=== PATIENT | female | born 1985 | race African-American/Black ===

== ENCOUNTER → 2020-03-26 | Outpatient (CLI) | payer MEDICARE, MEDICAID | END | disposition home or self-care (01) | LOC: STAR 09:20 | PROVIDERS: ATTEND Anesthesiology | DX: Z01.812 Encounter for preprocedural laboratory examination (principal); Z20.828 Contact with and (suspected) exposure to other viral communicable diseases | CPT/HCPCS: 36415; 87635 ==

== ENCOUNTER 2020-03-31 14:06 | Day surgery (SDC) | payer MEDICARE, MEDICAID ==
[~2020-03-31] VITALS: Ht 152.4 cm; Wt 85.6 kg
[2020-03-31] MEDS ORDERED: SODIUM CHLORIDE 0.9% 1,000 ML IV SCH (14:27)
[2020-03-31] MEDS ORDERED: CHLORHEXIDINE 15 ML UDC MM STA (14:27)
[2020-03-31] MEDS ORDERED: VITAMIN D (14:35)
[2020-03-31] MEDS ORDERED: CARV25TA12 PO (14:35)
[2020-03-31] MEDS ORDERED: LISI-167 PO (14:35)
[2020-03-31] MEDS ORDERED: ATOR40TA78 PO (14:35)
[2020-03-31] MEDS ORDERED: NIFE20CA PO (14:35)
[2020-03-31] MEDS ORDERED: SUCR500T PO (14:35)
[2020-03-31] MEDS ORDERED: HYDR-3342 PO (14:35)
[2020-03-31 14:38] VITALS: BP 111/69
[2020-03-31 15:30] LABS: BASOPHILS # (AUTO) 0.02 x10^3/uL (0-0.1); BASOPHILS % (AUTO) 0 % (0-1); EOSINOPHILS # (AUTO) 0.41 x10^3/uL (0-0.4); EOSINOPHILS % (AUTO) 5 % (1-7); LYMPHOCYTES # (AUTO) 1.31 x10^3/uL (1-3.4); LYMPHOCYTES % (AUTO) 14 % (22-44); MD NO; MEAN CORPUSCULAR HEMOGLOBIN 31.9 pg (27.0-34.8); MEAN CORPUSCULAR HGB CONC 32.3 g/dL (32.4-35.8); MEAN PLATELET VOLUME 7.7 fL (7.4-10.4); MONOCYTES # (AUTO) 0.71 x10^3/uL (0.2-0.8); MONOCYTES % (AUTO) 8 % (2-9); NEUTROPHILS # (AUTO) 6.81 x10^3/uL (1.8-6.8); NEUTROPHILS % (AUTO) 74 % (42-75); PLATELET COUNT 313 x10^3/uL (130-400); RED BLOOD COUNT 3.49 x10^6/uL (3.82-5.3); RED CELL DISTRIBUTION WIDTH 15.4 % (9.6-15.2)
[2020-03-31 15:31] LABS: HCG UR SG 1.011 (1.003-1.030)
[2020-03-31 15:36] LABS: ALBUMIN 3.8 g/dL (3.4-5.0); ANION GAP 6 mmol/L (5-15); CALCIUM 8.6 mg/dL (8.5-10.1); CHLORIDE 100 mmol/L (98-107)
[2020-03-31 15:50] LABS: ALANINE AMINOTRANSFERASE 18 U/L (12-78); ALKALINE PHOSPHATASE 62 U/L (45-117); BILIRUBIN,TOTAL 0.4 mg/dL (0.2-1.0); CREATININE 7.54 mg/dL (0.55-1.02); TOTAL PROTEIN 8.6 g/dL (6.4-8.2)
[2020-03-31] MEDS ORDERED: ONDANSETRON 2MG/ML, 2ML IVPush PRN ×2 (16:00→21:00)
[2020-03-31] MEDS ORDERED: OXYcodone 5 MG/5 ML ORAL.SOL UDC PO PRN (16:00)
[2020-03-31] MEDS ORDERED: PROMETHAZINE 25 MG/ML, 1ML IVPush PRN (16:00)
[2020-03-31] MEDS ORDERED: MEPERIDINE/PF 25MG/0.5ML IVPush PRN (16:00)
[2020-03-31] MEDS ORDERED: HYDROmorphone 1 MG/ML, 1ML INJ IVPush PRN (16:00)
[2020-03-31] MEDS ORDERED: ACETAMINOPHEN 325 MG TABLET PO PRN (16:00)
[2020-03-31] MEDS ORDERED: hydrALAzine 20 MG/ML, 1ML IV PRN (16:00)
[2020-03-31] MEDS ORDERED: FENTANYL PF 100 MCG/2ML IV PRN (16:00)
[2020-03-31] MEDS ORDERED: EPHEDRINE 50 MG/ML, 1ML IVPush PRN (16:00)
[2020-03-31] MEDS ORDERED: MIDAZOLAM 1 MG/ML, 2ML ONE (16:45)
[2020-03-31] MEDS ORDERED: FENTANYL PF 250 MCG/5ML ONE (16:45)
[2020-03-31] MEDS ORDERED: EPINEPHRINE 1 MG/ML, 1ML ONE ×2 (16:48→17:40)
[2020-03-31] MEDS ORDERED: LIDOCAINE-MPF 2% ,5ML ONE (16:48)
[2020-03-31] MEDS ORDERED: PAPAVERINE 30 MG/ML, 2ML ONE (17:40)
[2020-03-31] MEDS ORDERED: HEPARIN 1,000 UNITS/ML, 10ML ONE (17:40)
[2020-03-31] MEDS ORDERED: BUPIVACAINE/PF 0.5% ONE (17:40)
[2020-03-31] MEDS ORDERED: PROTAMINE SULFATE 10 MG/ML, 5ML ONE (17:40)
[2020-03-31] MEDS ORDERED: BACITRACIN 50,000 UNIT ONE (17:42)
[2020-03-31] MEDS ORDERED: LIDOCAINE/PF 1%, 30ML ONE (17:42)
[2020-03-31] MEDS ORDERED: THROMBIN 20,000 UNIT VIAL TP ONE (17:43)
[2020-03-31] MEDS ORDERED: CEFAZOLIN 1,000 MG ONE (17:45)
[2020-03-31] MEDS ORDERED: DEXAMETHASONE 4 MG/ML, 1ML ONE (17:45)
[2020-03-31] MEDS ORDERED: ONDANSETRON 2MG/ML, 2ML ONE (17:45)
[2020-03-31] MEDS ORDERED: PROPOFOL 10 MG/ML, 20ML ONE (17:45)
[2020-03-31] MEDS ORDERED: FENTANYL PF 100 MCG/2ML ONE (19:26)
[2020-03-31] MEDS ORDERED: OXYcodone 5 MG/5 ML ORAL.SOL UDC ONE (19:27)
[2020-03-31] MEDS ORDERED: ACETAMINOPHEN 650 MG/20.3 ML UDC ONE (19:33)
[2020-03-31] MEDS: LABETALOL 5MG/ML, 20ML IV PRN ×2 (19:43→20:00)
[2020-03-31] MEDS ORDERED: SODIUM CHLORIDE FLUSH 10ML SYR IVF SCH (21:00)
[2020-03-31] MEDS ORDERED: ATORVASTATIN 40 MG TABLET PO SCH (21:00)
[2020-03-31] MEDS ORDERED: HYDROcodone/APAP 5/325 TABLET PO PRN (21:00)
[2020-03-31] MEDS ORDERED: MORPHINE SULFATE 4 MG/ML, 1ML IVPush PRN (21:00)
[2020-03-31] MEDS ORDERED: HYDR-3240 PO (21:14)
[2020-04-01] MEDS ORDERED: CARVEDILOL 25 MG TABLET PO SCH (06:00)
[2020-04-01] MEDS ORDERED: SUCROFERRIC OXYHYDROXIDE 500 MG HOMEMEDPO SCH (08:00)
[2020-04-01] MEDS ORDERED: LISINOPRIL 10 MG TABLET PO SCH (09:00)
[2020-04-01] MEDS ORDERED: niFEDipine ER 30 MG TABLET.ER PO SCH (09:00)
== END 2020-03-31 23:07 | disposition home or self-care (01) ==
LOC: OR 14:06 → 4NE 20:30 → OR 23:07
PROVIDERS: ATTEND Surgery
DX: T82.868A Thrombosis due to vascular prosthetic devices, implants and grafts, initial encounter (principal); Y83.8 Other surgical procedures as the cause of abnormal reaction of the patient, or of later complication, without mention of misadventure at the time of the procedure; I12.0 Hypertensive chronic kidney disease with stage 5 chronic kidney disease or end stage renal disease; N18.6 End stage renal disease; E78.5 Hyperlipidemia, unspecified; F12.90 Cannabis use, unspecified, uncomplicated; Z99.2 Dependence on renal dialysis; Z88.8 Allergy status to other drugs, medicaments and biological substances; Z79.899 Other long term (current) drug therapy; Z98.890 Other specified postprocedural states
CPT/HCPCS: 35206; 36415; 37607; 80053; 81025; 85025; J0171; J0690; J1100; J1644; J2250; J2405; J2704; J2720; J3010; J7030; G0378; J2440

== ENCOUNTER 2021-01-20 09:56 | Inpatient (IN) | payer MEDICARE, MEDICAID ==
[~2021-01-20] VITALS: Ht 152.4 cm; Wt 77.4 kg
[~2021-01-20 09:56] MED LIST: ATOR40TA78 PO; CARV25TA12 PO; HYDR-2214 PO; HYDR-3342 PO; LISI-167 PO; NIFE20CA PO; SUCR500T PO; VITAMIN D
[2021-01-20] MEDS ORDERED: ACETAMINOPHEN 500 MG TABLET ONE ×2 (10:54→14:02)
[2021-01-20] MEDS ORDERED: ONDANSETRON 2MG/ML, 2ML ONE (10:54)
[2021-01-20] MEDS ORDERED: LORazepam 2 MG/ML, 1ML ONE ×3 (10:55→17:03)
[2021-01-20] MEDS ORDERED: CEFTRIAXONE 1,000 MG in DEXTROSE 5% 50 ML IVPB ONE (11:00)
[2021-01-20] MEDS ORDERED: LORazepam 2 MG/ML, 1ML IVPush ONE ×3 (11:00→17:30)
[2021-01-20] MEDS ORDERED: ACETAMINOPHEN 500 MG TABLET PO ONE (11:00)
--- NOTE | 2021-01-20 11:01 | NUR ---
[employer] Sales Agent concerned for sirs (febrile/tachycardic). provider to beside. piv placed from which blood culture x1 as well as basic labs drawn Medicated with nausea/anxiety/ per emar placed on monitoring manager ecg obtained
[2021-01-20 11:13] LABS: BASOPHILS % (AUTO) 0 % (0-1); EOSINOPHILS % (AUTO) 0 % (1-7); LYMPHOCYTES % (AUTO) 5 % (22-44); MEAN CORPUSCULAR HEMOGLOBIN 32.7 pg (27.0-34.8); MEAN CORPUSCULAR HGB CONC 33.9 g/dL (32.4-35.8); MEAN PLATELET VOLUME 8.4 fL (7.4-10.4); MONOCYTES % (AUTO) 6 % (2-9); NEUTROPHILS % (AUTO) 88 % (42-75); PLATELET COUNT 236 x10^3/uL (130-400); RED BLOOD COUNT 3.34 x10^6/uL (3.82-5.3); RED CELL DISTRIBUTION WIDTH 14.4 % (9.6-15.2)
[2021-01-20 11:20] LABS: ALBUMIN 3.7 g/dL (3.4-5.0); ANION GAP 9 mmol/L (5-15); CHLORIDE 91 mmol/L (98-107)
--- NOTE | 2021-01-20 11:24 | NUR ---
LAB AT BEDSIDE FOR LACTATE/2ND BLOOD CULTURE
--- NOTE | 2021-01-20 11:35 | NUR ---
POC REVIEWED WITH ERP: APAP FOR FEVER, BLOOD CULTURES X2, ABX AND SPARINGLY USE FLUIDS (NOT 30ML/KG NOT HYPOTENSIVE AND A DIALYSIS PATIENT)
[2021-01-20] MEDS ORDERED: SODIUM CHLORIDE 0.9% 1,000ML IVBOLUS ONE (12:30)
--- NOTE | 2021-01-20 12:31 | NUR ---
ERP ASKED FOR PAIN MEDS, SECONDARY ABX (GRAM +) PATIENT TO MRI AT 1228
[2021-01-20] MEDS ORDERED: HYDROmorphone 1 MG/ML, 1ML INJ IV ONE (13:00)
[2021-01-20] MEDS ORDERED: HYDROmorphone 1 MG/ML, 1ML INJ ONE ×2 (13:08→15:44)
--- NOTE | 2021-01-20 15:11 | NUR ---
report to jeyson villanueva
--- NOTE | 2021-01-20 16:33 | NUR ---
OFF THE FLOOR TO MRI
--- NOTE | 2021-01-20 17:13 | NUR ---
PT MEDICATED PER MAR FOR ANXIETY IN MRI.
[2021-01-20] MEDS ORDERED: hydrALAzine 20 MG/ML, 1ML IVPush PRN (18:30)
[2021-01-20] MEDS ORDERED: AMPICILLIN/SULBACTAM 3 GM in SODIUM CHLORIDE 0.9% 100 ML IV SCH ×2 (18:30→21:00)
[2021-01-20] MEDS ORDERED: ENALAPRILAT 1.25 MG/ML, 2ML IVPush PRN (18:30)
[2021-01-20] MEDS ORDERED: LABETALOL 5MG/ML, 20ML IVPush PRN (18:30)
[2021-01-20] MEDS ORDERED: VANCOMYCIN PER PHARMACY MC PRN (18:30)
[2021-01-20] MEDS ORDERED: DIPHENHYDRAMINE 50 MG/ML, 1ML IVPush ONE (18:30)
[2021-01-20] MEDS ORDERED: PHARMACY MAY ADJ FOR RENAL FX MC PRN (18:30)
[2021-01-20] MEDS ORDERED: BISACODYL 10 MG SUPP PR PRN (18:30)
[2021-01-20] MEDS ORDERED: POLYETHYLENE GLYCOL 17 GM PACKET PO PRN (18:30)
[2021-01-20] MEDS ORDERED: ONDANSETRON ODT 4 MG PO PRN (18:30)
[2021-01-20] MEDS ORDERED: DOCUSATE 100 MG CAPSULE PO PRN (18:30)
[2021-01-20] MEDS ORDERED: DIPHENHYDRAMINE 50 MG/ML, 1ML ONE (18:36)
--- NOTE | 2021-01-20 18:44 | NUR ---
PT MEDICATED WITH PREDNISONE. DR VALLECILLO VERBALLY ADVISED TO HOLD OFF ON BENADRYL UNTIL RIGHT BEFORE PT GOES TO CT.
--- NOTE | 2021-01-20 19:56 | NUR ---
STILL WAITING FOR CT SCAN TO BE DONE. PT TO RECEIVED BENADRYL PRIOR TO CT SCAN, AND THEN ADMISSION.
--- NOTE | 2021-01-20 20:35 | NUR ---
REPORT CALLED TO FLOOR RN, WITHOUT INCIDENT. STAFF ELECTRONIC [employer] OFFICER AT BEDSIDE TO TAKE PT TO CT. PT AWAKE AND ALERT. BENADRYL GIVEN FOR POSSIBLE ALLERGIC REACTION PRIOR TO CT SCAN.
[2021-01-20] MEDS: AMPICILLIN/SULBACTAM 3 GM in SODIUM CHLORIDE 0.9% 100 ML IV SCH (20:48)
[2021-01-20] MEDS ORDERED: OMNIPAQUE 350 MG/ML, 100ML BOTTLE ONE (20:55)
[2021-01-20] MEDS ORDERED: PHARMACOKINETIC CONSULTATION MC ONE (21:00)
[2021-01-20] MEDS: SUCROFERRIC OXYHYDROXIDE 500 MG PO SCH (21:00)
[2021-01-20] MEDS ORDERED: VANCOMYCIN 1,600 MG in SODIUM CHLORIDE 0.9% 250 ML IV ONE (21:00)
[2021-01-20] MEDS ORDERED: PHARMACOKINETIC MONITORING MC PRN (21:00)
--- NOTE | 2021-01-20 21:08 | NUR ---
PT TAKEN TO FLOOR VIA STRETCHER, NO ACUTE DISTRESS. IV INTACT. MEDS INCLUDED IN TRANSPORT TO FLOOR WITH PT.
[2021-01-20] MEDS: CARVEDILOL 25 MG TABLET PO SCH (21:40)
[2021-01-20] MEDS: ATORVASTATIN 40 MG TABLET PO SCH (21:40)
[2021-01-20] MEDS: HYDROcodone/APAP 5/325 TABLET PO PRN (22:43)
[2021-01-20 22:53] VITALS: BP_SYST 135; BP_SYST 138; BP_DIAS 68
[2021-01-21 02:12] VITALS: BP 106/70
[2021-01-21 06:01] LABS: BASOPHILS % (AUTO) 0 % (0-1); EOSINOPHILS % (AUTO) 0 % (1-7); LYMPHOCYTES % (AUTO) 7 % (22-44); MEAN CORPUSCULAR HEMOGLOBIN 32.9 pg (27.0-34.8); MEAN CORPUSCULAR HGB CONC 33.2 g/dL (32.4-35.8); MEAN PLATELET VOLUME 8.8 fL (7.4-10.4); MONOCYTES % (AUTO) 5 % (2-9); NEUTROPHILS % (AUTO) 87 % (42-75); PLATELET COUNT 193 x10^3/uL (130-400); RED BLOOD COUNT 3.25 x10^6/uL (3.82-5.3); RED CELL DISTRIBUTION WIDTH 14.7 % (9.6-15.2)
[2021-01-21 07:02] VITALS: BP 115/74
[2021-01-21] MEDS: niFEDipine ER 90 MG TAB.ER.24 PO SCH (08:12)
[2021-01-21] MEDS: CARVEDILOL 25 MG TABLET PO SCH ×2 (08:12→20:20)
[2021-01-21] MEDS: HYDROcodone/APAP 5/325 TABLET PO PRN ×3 (08:12→23:19)
[2021-01-21] MEDS: LISINOPRIL 10 MG TABLET PO SCH ×2 (08:13→13:44)
[2021-01-21] MEDS: SUCROFERRIC OXYHYDROXIDE 500 MG PO SCH ×3 (08:13→20:24)
[2021-01-21 10:10] LABS: ANION GAP 9 mmol/L (5-15); CALCIUM 8.7 mg/dL (8.5-10.1); CHLORIDE 90 mmol/L (98-107)
[2021-01-21 12:27] VITALS: BP 83/52
[2021-01-21 15:15] VITALS: BP 103/54
[2021-01-21 19:28] VITALS: BP 108/66
[2021-01-21] MEDS: AMPICILLIN/SULBACTAM 3 GM in SODIUM CHLORIDE 0.9% 100 ML IV SCH (20:24)
[2021-01-21] MEDS: ATORVASTATIN 40 MG TABLET PO SCH (20:25)
[2021-01-22] VITALS (7 sets, daily range): BP systolic 95–123; BP diastolic 55–80
[2021-01-22] MEDS: HYDROcodone/APAP 5/325 TABLET PO PRN ×2 (03:29→09:55)
[2021-01-22 06:02] LABS: BASOPHILS % (AUTO) 0 % (0-1); EOSINOPHILS % (AUTO) 2 % (1-7); LYMPHOCYTES % (AUTO) 11 % (22-44); MEAN CORPUSCULAR HEMOGLOBIN 33.2 pg (27.0-34.8); MEAN CORPUSCULAR HGB CONC 33.8 g/dL (32.4-35.8); MEAN PLATELET VOLUME 8.1 fL (7.4-10.4); MONOCYTES % (AUTO) 12 % (2-9); NEUTROPHILS % (AUTO) 75 % (42-75); PLATELET COUNT 260 x10^3/uL (130-400); RED BLOOD COUNT 3.26 x10^6/uL (3.82-5.3); RED CELL DISTRIBUTION WIDTH 13.8 % (9.6-15.2)
[2021-01-22 06:26] LABS: CHLORIDE 94 mmol/L (98-107)
[2021-01-22 06:34] LABS: ALANINE AMINOTRANSFERASE 27 U/L (12-78); ALBUMIN 3.6 g/dL (3.4-5.0); ALKALINE PHOSPHATASE 56 U/L (45-117); ANION GAP 6 mmol/L (5-15); BILIRUBIN,TOTAL 0.4 mg/dL (0.2-1.0); CREATININE 9.67 mg/dL (0.55-1.02); VANCOMYCIN,RANDOM 30.4 mcg/mL
[2021-01-22] MEDS: SUCROFERRIC OXYHYDROXIDE 500 MG PO SCH ×2 (09:00→11:32)
[2021-01-22] MEDS: niFEDipine ER 90 MG TAB.ER.24 PO SCH (09:56)
[2021-01-22] MEDS: CARVEDILOL 25 MG TABLET PO SCH ×2 (09:58→19:56)
[2021-01-22] MEDS: LISINOPRIL 10 MG TABLET PO SCH (11:58)
[2021-01-22] MEDS: OXYcodone IR 5MG TABLET PO PRN ×2 (11:59→17:51)
[2021-01-22] MEDS: SUCROFERRIC OXYHYDROXIDE 1000 MG PO SCH (18:00)
[2021-01-22] MEDS: ACETAMINOPHEN 325 MG TABLET PO PRN (18:08)
[2021-01-22] MEDS: AMPICILLIN/SULBACTAM 3 GM in SODIUM CHLORIDE 0.9% 100 ML IV SCH (19:50)
[2021-01-22] MEDS: ONDANSETRON 2MG/ML, 2ML IVPush PRN (19:50)
[2021-01-22] MEDS: DOCUSATE 100 MG CAPSULE PO SCH (19:56)
[2021-01-22] MEDS: ATORVASTATIN 40 MG TABLET PO SCH (20:57)
[2021-01-22] MEDS ORDERED: SUCROFERRIC OXYHYDROXIDE 1000 MG PO SCH ×2 (21:00)
[2021-01-23] MEDS: OXYcodone IR 5MG TABLET PO PRN ×5 (00:01→20:37)
[2021-01-23 05:37] LABS: BASOPHILS % (AUTO) 0 % (0-1); EOSINOPHILS % (AUTO) 2 % (1-7); LYMPHOCYTES % (AUTO) 15 % (22-44); MEAN CORPUSCULAR HEMOGLOBIN 32.9 pg (27.0-34.8); MEAN CORPUSCULAR HGB CONC 33.5 g/dL (32.4-35.8); MONOCYTES % (AUTO) 12 % (2-9); NEUTROPHILS % (AUTO) 70 % (42-75); PLATELET COUNT 311 x10^3/uL (130-400); RED BLOOD COUNT 3.28 x10^6/uL (3.82-5.3); RED CELL DISTRIBUTION WIDTH 14.4 % (9.6-15.2)
[2021-01-23 05:45] LABS: CHLORIDE 93 mmol/L (98-107)
[2021-01-23 05:54] LABS: ANION GAP 11 mmol/L (5-15); CALCIUM 9.2 mg/dL (8.5-10.1); VANCOMYCIN,RANDOM 26.6 mcg/mL
[2021-01-23 06:52] VITALS: BP 111/73
[2021-01-23] MEDS: CARVEDILOL 25 MG TABLET PO SCH ×2 (07:17→20:38)
[2021-01-23] MEDS: LISINOPRIL 10 MG TABLET PO SCH (07:18)
[2021-01-23] MEDS: niFEDipine ER 90 MG TAB.ER.24 PO SCH (07:18)
[2021-01-23] MEDS: SUCROFERRIC OXYHYDROXIDE 1000 MG PO SCH ×3 (08:00→17:00)
[2021-01-23] MEDS: ACETAMINOPHEN 325 MG TABLET PO PRN ×3 (08:18→20:36)
[2021-01-23] MEDS: DOCUSATE 100 MG CAPSULE PO SCH ×2 (08:20→20:38)
[2021-01-23] MEDS: HEPARIN 5,000 UNITS/ML, 1ML SQ SCH ×2 (12:58→20:38)
[2021-01-23] MEDS: CEFAZOLIN PMX 2GM/50ML 50 ML IVPB SCH (12:58)
[2021-01-23] MEDS ORDERED: CEFAZOLIN PMX 2GM/100ML 100 ML IVPB SCH (13:00)
[2021-01-23 13:32] VITALS: BP 117/77
[2021-01-23 20:09] VITALS: BP 128/86
[2021-01-23] MEDS: ATORVASTATIN 40 MG TABLET PO SCH (20:38)
[2021-01-23] MEDS: ONDANSETRON 2MG/ML, 2ML IVPush PRN (20:57)
[2021-01-24 00:42] VITALS: BP 108/70
[2021-01-24] MEDS: OXYcodone IR 5MG TABLET PO PRN ×4 (03:46→20:20)
[2021-01-24] MEDS: HEPARIN 5,000 UNITS/ML, 1ML SQ SCH ×2 (03:51→15:52)
[2021-01-24] MEDS: ACETAMINOPHEN 325 MG TABLET PO PRN ×4 (03:52→20:15)
[2021-01-24 05:35] LABS: BASOPHILS % (AUTO) 0 % (0-1); EOSINOPHILS % (AUTO) 2 % (1-7); LYMPHOCYTES % (AUTO) 12 % (22-44); MEAN CORPUSCULAR HEMOGLOBIN 32.8 pg (27.0-34.8); MEAN CORPUSCULAR HGB CONC 33.8 g/dL (32.4-35.8); MEAN PLATELET VOLUME 8.1 fL (7.4-10.4); MONOCYTES % (AUTO) 11 % (2-9); NEUTROPHILS % (AUTO) 75 % (42-75); PLATELET COUNT 307 x10^3/uL (130-400); RED BLOOD COUNT 3.13 x10^6/uL (3.82-5.3); RED CELL DISTRIBUTION WIDTH 14.3 % (9.6-15.2)
[2021-01-24 05:44] LABS: ALBUMIN 3.4 g/dL (3.4-5.0); ANION GAP 12 mmol/L (5-15); CALCIUM 9.4 mg/dL (8.5-10.1); CHLORIDE 91 mmol/L (98-107)
[2021-01-24 06:28] VITALS: BP 122/75
[2021-01-24] MEDS: SUCROFERRIC OXYHYDROXIDE 1000 MG PO SCH ×3 (07:54→16:37)
[2021-01-24] MEDS: LISINOPRIL 10 MG TABLET PO SCH (07:54)
[2021-01-24] MEDS: DOCUSATE 100 MG CAPSULE PO SCH ×2 (07:54→20:20)
[2021-01-24] MEDS: niFEDipine ER 90 MG TAB.ER.24 PO SCH (07:54)
[2021-01-24] MEDS: CARVEDILOL 25 MG TABLET PO SCH ×2 (07:54→19:56)
[2021-01-24 14:00] VITALS: BP 111/62
[2021-01-24] MEDS: CEFAZOLIN PMX 2GM/50ML 50 ML IVPB SCH (16:36)
[2021-01-24 19:01] VITALS: BP 105/72
[2021-01-24] MEDS: ATORVASTATIN 40 MG TABLET PO SCH (20:14)
[2021-01-25 00:14] VITALS: BP 110/74
[2021-01-25] MEDS: ACETAMINOPHEN 325 MG TABLET PO PRN (00:31)
[2021-01-25] MEDS: HEPARIN 5,000 UNITS/ML, 1ML SQ SCH ×3 (00:31→18:25)
[2021-01-25] MEDS: OXYcodone IR 5MG TABLET PO PRN ×4 (00:32→20:10)
[2021-01-25 04:58] LABS: BASOPHILS % (AUTO) 0 % (0-1); EOSINOPHILS % (AUTO) 2 % (1-7); LYMPHOCYTES % (AUTO) 15 % (22-44); MEAN CORPUSCULAR HEMOGLOBIN 33.1 pg (27.0-34.8); MEAN CORPUSCULAR HGB CONC 34.1 g/dL (32.4-35.8); MEAN PLATELET VOLUME 8.2 fL (7.4-10.4); MONOCYTES % (AUTO) 12 % (2-9); NEUTROPHILS % (AUTO) 71 % (42-75); PLATELET COUNT 372 x10^3/uL (130-400); RED BLOOD COUNT 3.43 x10^6/uL (3.82-5.3); RED CELL DISTRIBUTION WIDTH 14.5 % (9.6-15.2)
[2021-01-25 06:34] VITALS: BP 117/79
[2021-01-25] MEDS: SUCROFERRIC OXYHYDROXIDE 1000 MG PO SCH ×3 (08:00→17:00)
[2021-01-25] MEDS: niFEDipine ER 90 MG TAB.ER.24 PO SCH (08:35)
[2021-01-25] MEDS: CARVEDILOL 25 MG TABLET PO SCH ×2 (08:35→20:10)
[2021-01-25] MEDS: LISINOPRIL 10 MG TABLET PO SCH (08:35)
[2021-01-25] MEDS: DOCUSATE 100 MG CAPSULE PO SCH ×2 (08:35→20:04)
[2021-01-25 12:44] VITALS: BP 117/76
[2021-01-25] MEDS: CEFAZOLIN PMX 2GM/50ML 50 ML IVPB SCH (12:44)
[2021-01-25 18:29] VITALS: BP 124/87
[2021-01-25 20:00] VITALS: BP 113/79
[2021-01-25] MEDS: ATORVASTATIN 40 MG TABLET PO SCH (20:10)
[2021-01-26 00:46] VITALS: BP 122/85
[2021-01-26] MEDS: HEPARIN 5,000 UNITS/ML, 1ML SQ SCH ×2 (01:48→08:32)
[2021-01-26] MEDS: OXYcodone IR 5MG TABLET PO PRN ×4 (01:49→22:33)
[2021-01-26 05:07] LABS: BASOPHILS % (AUTO) 0 % (0-1); EOSINOPHILS % (AUTO) 2 % (1-7); LYMPHOCYTES % (AUTO) 12 % (22-44); MEAN CORPUSCULAR HEMOGLOBIN 33.2 pg (27.0-34.8); MEAN CORPUSCULAR HGB CONC 34.2 g/dL (32.4-35.8); MEAN PLATELET VOLUME 8.2 fL (7.4-10.4); MONOCYTES % (AUTO) 9 % (2-9); NEUTROPHILS % (AUTO) 78 % (42-75); PLATELET COUNT 408 x10^3/uL (130-400); RED BLOOD COUNT 3.19 x10^6/uL (3.82-5.3)
[2021-01-26 05:16] LABS: ALBUMIN 3.5 g/dL (3.4-5.0); ANION GAP 14 mmol/L (5-15); CALCIUM 10.2 mg/dL (8.5-10.1); CHLORIDE 89 mmol/L (98-107)
[2021-01-26 05:21] LABS: ALANINE AMINOTRANSFERASE 7 U/L (12-78); ALKALINE PHOSPHATASE 61 U/L (45-117); BILIRUBIN,TOTAL 0.5 mg/dL (0.2-1.0); TOTAL PROTEIN 9.7 g/dL (6.4-8.2)
[2021-01-26] MEDS: SUCROFERRIC OXYHYDROXIDE 1000 MG PO SCH ×3 (08:00→17:00)
[2021-01-26 08:48] VITALS: BP 129/85
[2021-01-26] MEDS: DOCUSATE 100 MG CAPSULE PO SCH ×2 (09:00→21:17)
[2021-01-26] MEDS: LISINOPRIL 10 MG TABLET PO SCH (09:00)
[2021-01-26] MEDS: CARVEDILOL 25 MG TABLET PO SCH ×2 (09:00→21:00)
[2021-01-26] MEDS: niFEDipine ER 90 MG TAB.ER.24 PO SCH (09:00)
[2021-01-26] MEDS ORDERED: APIXABAN 5 MG TABLET PO SCH (13:30)
[2021-01-26 14:07] VITALS: BP 100/70
[2021-01-26 18:41] VITALS: BP 110/76
[2021-01-26 21:13] VITALS: BP 103/73
[2021-01-26] MEDS: ATORVASTATIN 40 MG TABLET PO SCH (21:17)
[2021-01-26] MEDS: CEFAZOLIN PMX 2GM/50ML 50 ML IVPB SCH (22:33)
[2021-01-26] MEDS: ONDANSETRON 2MG/ML, 2ML IVPush PRN (22:44)
[2021-01-27] VITALS (17 sets, daily range): BP systolic 69–121; BP diastolic 41–78
[2021-01-27 04:53] LABS: ALBUMIN 3.5 g/dL (3.4-5.0); ANION GAP 10 mmol/L (5-15); CALCIUM 10.3 mg/dL (8.5-10.1); CHLORIDE 90 mmol/L (98-107)
[2021-01-27] MEDS: SUCROFERRIC OXYHYDROXIDE 1000 MG PO SCH ×3 (08:00→18:30)
[2021-01-27] MEDS: DOCUSATE 100 MG CAPSULE PO SCH ×2 (08:59→20:00)
[2021-01-27] MEDS: LISINOPRIL 10 MG TABLET PO SCH (08:59)
[2021-01-27] MEDS: CARVEDILOL 25 MG TABLET PO SCH (08:59)
[2021-01-27] MEDS: niFEDipine ER 90 MG TAB.ER.24 PO SCH (08:59)
[2021-01-27] MEDS: OXYcodone IR 5MG TABLET PO PRN ×2 (09:07→20:00)
[2021-01-27] MEDS ORDERED: SODIUM CHLORIDE 0.9%, 500ML IVBOLUS ONE ×2 (11:30→14:00)
[2021-01-27] MEDS ORDERED: MIDODRINE 5 MG TABLET PO ONE (12:30)
[2021-01-27] MEDS ORDERED: MIDODRINE 5 MG TABLET ONE (12:41)
[2021-01-27] MEDS: ONDANSETRON 2MG/ML, 2ML IVPush PRN ×2 (13:33→20:08)
--- NOTE | 2021-01-27 14:11 | NUR ---
AL SARKAR - Fall Risk Medications present and NOT receiving anticoagulants.
[2021-01-27] MEDS ORDERED: MEROPENEM 1 GM in SODIUM CHLORIDE 0.9% 100 ML IV SCH (17:30)
[2021-01-27] MEDS ORDERED: MEROPENEM 500 MG in SODIUM CHLORIDE 0.9% 100 ML IV SCH (17:30)
[2021-01-27] MEDS ORDERED: PHARMACY MAY ADJ FOR RENAL FX MC PRN (17:30)
[2021-01-27] MEDS ORDERED: NOREPINEPHRINE 8 MG in SODIUM CHLORIDE 0.9% 242 ML IV PRN (18:00)
[2021-01-27] MEDS: MEROPENEM 1 GM in SODIUM CHLORIDE 0.9% 100 ML IV SCH (18:30)
[2021-01-27] MEDS: ATORVASTATIN 40 MG TABLET PO SCH (19:59)
[2021-01-27] MEDS ORDERED: MAALOX/HYOSCYAMINE/LIDOCAINE 45 ML BTL PO ONE (20:00)
[2021-01-27 20:26] LABS: TROPONIN I < 0.015 ng/mL (0.000-0.045)
[2021-01-28 02:50] LABS: TROPONIN I < 0.015 ng/mL (0.000-0.045)
[2021-01-28] MEDS ORDERED: predniSONE 50MG TABLET PO ONE ×3 (03:00→11:00)
[2021-01-28 04:44] LABS: BASOPHILS % (AUTO) 0 % (0-1); EOSINOPHILS % (AUTO) 2 % (1-7); LYMPHOCYTES % (AUTO) 11 % (22-44); MEAN CORPUSCULAR HEMOGLOBIN 32.8 pg (27.0-34.8); MEAN PLATELET VOLUME 7.6 fL (7.4-10.4); MONOCYTES % (AUTO) 11 % (2-9); NEUTROPHILS % (AUTO) 76 % (42-75); PLATELET COUNT 415 x10^3/uL (130-400); RED BLOOD COUNT 2.74 x10^6/uL (3.82-5.3); RED CELL DISTRIBUTION WIDTH 13.9 % (9.6-15.2)
[2021-01-28 04:55] LABS: ALBUMIN 3.3 g/dL (3.4-5.0); ANION GAP 13 mmol/L (5-15); CALCIUM 9.8 mg/dL (8.5-10.1); CHLORIDE 93 mmol/L (98-107)
[2021-01-28 04:59] LABS: ALKALINE PHOSPHATASE 47 U/L (45-117); BILIRUBIN,TOTAL 0.4 mg/dL (0.2-1.0); TOTAL PROTEIN 8.5 g/dL (6.4-8.2)
[2021-01-28 05:12] LABS: ALANINE AMINOTRANSFERASE < 6 U/L (12-78)
[2021-01-28] MEDS: SUCROFERRIC OXYHYDROXIDE 1000 MG PO SCH ×3 (08:00→16:33)
[2021-01-28] MEDS: DOCUSATE 100 MG CAPSULE PO SCH ×2 (09:00→21:00)
[2021-01-28] MEDS ORDERED: LORazepam 2 MG/ML, 1ML IVPush ONE (10:00)
[2021-01-28] MEDS ORDERED: LIDOCAINE 1%, 10ML ONE (10:35)
[2021-01-28] MEDS ORDERED: DIPHENHYDRAMINE 50 MG/ML, 1ML IVPush ONE (11:00)
[2021-01-28] MEDS ORDERED: PROPOFOL 10 MG/ML, 20ML ONE (17:15)
[2021-01-28] MEDS ORDERED: EPHEDRINE 50 MG/ML, 1ML IVPush PRN (17:30)
[2021-01-28] MEDS ORDERED: FENTANYL PF 100 MCG/2ML IV PRN (17:30)
[2021-01-28] MEDS ORDERED: HYDROmorphone 1 MG/ML, 1ML INJ IVPush PRN (17:30)
[2021-01-28] MEDS ORDERED: LABETALOL 5MG/ML, 20ML IV PRN (17:30)
[2021-01-28] MEDS ORDERED: LORazepam 2 MG/ML, 1ML IVPush PRN (17:30)
[2021-01-28] MEDS ORDERED: ONDANSETRON 2MG/ML, 2ML IVPush PRN (17:30)
[2021-01-28] MEDS ORDERED: hydrALAzine 20 MG/ML, 1ML IV PRN (17:30)
[2021-01-28] MEDS ORDERED: ACETAMINOPHEN 325 MG TABLET PO PRN (17:30)
[2021-01-28] MEDS ORDERED: MEPERIDINE/PF 25MG/0.5ML IVPush PRN (17:30)
[2021-01-28] MEDS ORDERED: OXYcodone 5 MG/5 ML ORAL.SOL UDC PO PRN (17:30)
[2021-01-28] MEDS ORDERED: METHOCARBAMOL 1,000 MG in DEXTROSE 5% 100 ML IV PRN (17:30)
[2021-01-28] MEDS ORDERED: PROMETHAZINE 25 MG/ML, 1ML IVPush PRN (17:30)
[2021-01-28] MEDS ORDERED: HEPARIN 1,000 UNITS/ML, 10ML ONE (18:10)
[2021-01-28] MEDS ORDERED: OXYcodone 5 MG/5 ML ORAL.SOL UDC ONE (19:00)
[2021-01-28] MEDS ORDERED: ACETAMINOPHEN 650 MG/20.3 ML UDC ONE (19:01)
[2021-01-28] MEDS: MEROPENEM 1 GM in SODIUM CHLORIDE 0.9% 100 ML IV SCH (21:08)
[2021-01-28] MEDS: ATORVASTATIN 40 MG TABLET PO SCH (21:08)
[2021-01-28] MEDS ORDERED: CEFAZOLIN 3,000 MG in DEXTROSE 5% 100 ML IVPB SCH (22:00)
[2021-01-29 04:11] LABS: MEAN CORPUSCULAR HEMOGLOBIN 32.6 pg (27.0-34.8); MEAN CORPUSCULAR HGB CONC 33.5 g/dL (32.4-35.8); MEAN PLATELET VOLUME 7.9 fL (7.4-10.4); PLATELET COUNT 435 x10^3/uL (130-400); RED BLOOD COUNT 2.75 x10^6/uL (3.82-5.3); RED CELL DISTRIBUTION WIDTH 14.3 % (9.6-15.2)
[2021-01-29 04:21] LABS: ALBUMIN 3.3 g/dL (3.4-5.0); ANION GAP 15 mmol/L (5-15); CALCIUM 10.2 mg/dL (8.5-10.1); CHLORIDE 92 mmol/L (98-107)
[2021-01-29 04:22] LABS: ALANINE AMINOTRANSFERASE < 6 U/L (12-78)
[2021-01-29 04:23] LABS: ALKALINE PHOSPHATASE 51 U/L (45-117); BILIRUBIN,TOTAL 0.3 mg/dL (0.2-1.0); TOTAL PROTEIN 8.8 g/dL (6.4-8.2)
[2021-01-29 04:44] LABS: BAND#(MANUAL) 0.38 x10^3/uL; BANDS%(MANUAL) 2 % (0-7); EOS#(MANUAL) 0.19 x10^3/uL (0.0-0.4); EOS% (MANUAL) 1 % (1-7); LYMPH#(MANUAL) 1.13 x10^3/uL (1-3.4); LYMPHS% (MANUAL) 6 % (22-44); METAMYELOCYTES# (MANUAL) 0.19 x10^3/uL (0-0); METAMYELOCYTES% (MANUAL) 1 % (0-1); MONOS#(MANUAL) 0.75 x10^3/uL (0.3-2.7); MONOS% (MANUAL) 4 % (2-9); MYELOCYTES# (MANUAL) 0.19 x10^3/uL (0-0); MYELOCYTES% (MANUAL) 1 % (0-0); SEG#(MANUAL) 15.98 x10^3/uL (1.8-6.8); SEGS% (MANUAL) 85 % (42-75)
[2021-01-29 04:45] LABS: <PLATELET ESTIMATE> INCREASED; <PLT MORPHOLOGY> NORMAL PLT MORPH; <RBC MORPHOLOGY> NORMAL
[2021-01-29] MEDS: SUCROFERRIC OXYHYDROXIDE 1000 MG PO SCH ×3 (07:23→20:18)
[2021-01-29] MEDS: DOCUSATE 100 MG CAPSULE PO SCH ×2 (07:23→21:48)
[2021-01-29] MEDS ORDERED: PAPAVERINE 30 MG/ML, 2ML ONE (10:12)
[2021-01-29] MEDS ORDERED: HEPARIN 5,000 UNITS/ML, 1ML ONE ×3 (10:12→12:56)
[2021-01-29] MEDS ORDERED: HEPARIN 1,000 UNITS/ML, 10ML ONE (10:12)
[2021-01-29] MEDS ORDERED: BUPIVACAINE/PF 0.5% ONE (10:12)
[2021-01-29] MEDS ORDERED: EPINEPHRINE 1 MG/ML, 1ML ONE (10:13)
[2021-01-29] MEDS ORDERED: THROMBIN 20,000 UNIT VIAL TP ONE (10:13)
[2021-01-29] MEDS ORDERED: PROTAMINE SULFATE 10 MG/ML, 5ML ONE (10:13)
[2021-01-29] MEDS ORDERED: EPHEDRINE 50 MG/ML, 1ML IVPush PRN (10:30)
[2021-01-29] MEDS ORDERED: LABETALOL 5MG/ML, 20ML IV PRN (10:30)
[2021-01-29] MEDS ORDERED: ONDANSETRON 2MG/ML, 2ML IVPush PRN (10:30)
[2021-01-29] MEDS ORDERED: PROMETHAZINE 25 MG/ML, 1ML IVPush PRN (10:30)
[2021-01-29] MEDS ORDERED: HYDROmorphone 1 MG/ML, 1ML INJ IVPush PRN (10:30)
[2021-01-29] MEDS ORDERED: hydrALAzine 20 MG/ML, 1ML IV PRN (10:30)
[2021-01-29] MEDS ORDERED: LORazepam 2 MG/ML, 1ML IVPush PRN (10:30)
[2021-01-29] MEDS ORDERED: FENTANYL PF 100 MCG/2ML IV PRN (10:30)
[2021-01-29] MEDS ORDERED: ACETAMINOPHEN 325 MG TABLET PO PRN (10:30)
[2021-01-29] MEDS ORDERED: METHOCARBAMOL 1,000 MG in DEXTROSE 5% 100 ML IV PRN (10:30)
[2021-01-29] MEDS ORDERED: OXYcodone 5 MG/5 ML ORAL.SOL UDC PO PRN (10:30)
[2021-01-29] MEDS ORDERED: DEXAMETHASONE 4 MG/ML, 1ML ONE (10:58)
[2021-01-29] MEDS ORDERED: ONDANSETRON 2MG/ML, 2ML ONE (10:58)
[2021-01-29] MEDS ORDERED: PROPOFOL 10 MG/ML, 20ML ONE (10:58)
[2021-01-29] MEDS ORDERED: CEFAZOLIN 1,000 MG ONE (10:58)
[2021-01-29] MEDS ORDERED: BUPIVACAINE/PF-EPI 0.5% 1:200K IM ONE (11:28)
[2021-01-29] MEDS ORDERED: FENTANYL PF 250 MCG/5ML ONE (14:31)
[2021-01-29] MEDS ORDERED: OXYcodone 5 MG/5 ML ORAL.SOL UDC ONE (14:40)
[2021-01-29] MEDS ORDERED: FENTANYL PF 100 MCG/2ML ONE (14:40)
[2021-01-29] MEDS: OXYcodone IR 5MG TABLET PO PRN ×2 (16:21→21:47)
[2021-01-29] MEDS: ONDANSETRON 2MG/ML, 2ML IVPush PRN (18:24)
[2021-01-29 19:47] VITALS: BP 110/71
[2021-01-29] MEDS: MEROPENEM 1 GM in SODIUM CHLORIDE 0.9% 100 ML IV SCH (20:18)
[2021-01-29] MEDS: ATORVASTATIN 40 MG TABLET PO SCH (21:47)
[2021-01-30] VITALS (7 sets, daily range): BP systolic 109–149; BP diastolic 72–79
[2021-01-30] MEDS: OXYcodone IR 5MG TABLET PO PRN ×7 (02:00→20:07)
[2021-01-30 07:22] LABS: MEAN CORPUSCULAR HEMOGLOBIN 33.1 pg (27.0-34.8); MEAN CORPUSCULAR HGB CONC 33.8 g/dL (32.4-35.8); MEAN PLATELET VOLUME 8.1 fL (7.4-10.4); PLATELET COUNT 365 x10^3/uL (130-400); RED BLOOD COUNT 2.44 x10^6/uL (3.82-5.3); RED CELL DISTRIBUTION WIDTH 14.3 % (9.6-15.2)
[2021-01-30 07:27] LABS: ANION GAP 11 mmol/L (5-15); CHLORIDE 90 mmol/L (98-107); CHOLESTEROL, TOTAL 219 mg/dL (140-239); TRIGLYCERIDES 339 mg/dL (50-200); VLDL CHOLESTEROL 68 mg/dL (0-25)
[2021-01-30 07:28] LABS: CHOL/HDL RATIO 6.8; HDL CHOL % 15 % (28-40); HDL CHOLESTEROL (DIRECT) 32 mg/dL (40-60); LDL CHOLESTEROL,CALCULATED 119 mg/dL (54-169); LDL/HDL RATIO 3.7 (0.5-3.0)
[2021-01-30 07:48] LABS: EOS#(MANUAL) 0.17 x10^3/uL (0.0-0.4); EOS% (MANUAL) 1 % (1-7); LYMPH#(MANUAL) 2.82 x10^3/uL (1-3.4); LYMPHS% (MANUAL) 17 % (22-44); METAMYELOCYTES# (MANUAL) 0.17 x10^3/uL (0-0); METAMYELOCYTES% (MANUAL) 1 % (0-1); MONOS#(MANUAL) 0.66 x10^3/uL (0.3-2.7); MONOS% (MANUAL) 4 % (2-9); SEG#(MANUAL) 12.78 x10^3/uL (1.8-6.8); SEGS% (MANUAL) 77 % (42-75)
[2021-01-30 07:49] LABS: <PLATELET ESTIMATE> ADEQUATE; <PLT MORPHOLOGY> NORMAL PLT MORPH; <RBC MORPHOLOGY> NORMAL
[2021-01-30] MEDS: SUCROFERRIC OXYHYDROXIDE 1000 MG PO SCH ×3 (09:10→17:00)
[2021-01-30] MEDS: DOCUSATE 100 MG CAPSULE PO SCH ×2 (09:12→20:07)
[2021-01-30] MEDS: ATORVASTATIN 40 MG TABLET PO SCH (20:07)
[2021-01-30] MEDS: ONDANSETRON 2MG/ML, 2ML IVPush PRN (20:54)
[2021-01-31 00:14] VITALS: BP 133/74
[2021-01-31] MEDS: OXYcodone IR 5MG TABLET PO PRN ×4 (00:20→23:17)
[2021-01-31 06:00] LABS: BASOPHILS % (AUTO) 0 % (0-1); EOSINOPHILS % (AUTO) 1 % (1-7); LYMPHOCYTES % (AUTO) 12 % (22-44); MEAN CORPUSCULAR HEMOGLOBIN 32.9 pg (27.0-34.8); MONOCYTES % (AUTO) 11 % (2-9); NEUTROPHILS % (AUTO) 75 % (42-75); PLATELET COUNT 351 x10^3/uL (130-400); RED BLOOD COUNT 2.47 x10^6/uL (3.82-5.3); RED CELL DISTRIBUTION WIDTH 13.8 % (9.6-15.2)
[2021-01-31 06:17] LABS: CHLORIDE 91 mmol/L (98-107)
[2021-01-31 06:24] LABS: ANION GAP 13 mmol/L (5-15)
[2021-01-31 06:59] VITALS: BP 96/61
[2021-01-31] MEDS: SUCROFERRIC OXYHYDROXIDE 1000 MG PO SCH ×3 (08:00→18:10)
[2021-01-31] MEDS: DOCUSATE 100 MG CAPSULE PO SCH ×2 (09:00→21:00)
[2021-01-31] MEDS ORDERED: FENTANYL PF 100 MCG/2ML ONE (09:36)
[2021-01-31] MEDS ORDERED: MIDAZOLAM 1 MG/ML, 5ML ONE (09:36)
[2021-01-31] MEDS ORDERED: ARANESP 40 MCG/ML **ESRD SQ SCH (12:30)
[2021-01-31] MEDS: ATORVASTATIN 40 MG TABLET PO SCH (21:56)
[2021-01-31] MEDS: CEFAZOLIN PMX 2GM/50ML 50 ML IVPB SCH (21:56)
[2021-02-01 00:11] VITALS: BP 102/64
[2021-02-01 04:50] LABS: ALBUMIN 2.8 g/dL (3.4-5.0); ANION GAP 10 mmol/L (5-15); CHLORIDE 94 mmol/L (98-107)
[2021-02-01 04:53] LABS: CREATININE 9.71 mg/dL (0.55-1.02)
[2021-02-01 06:51] LABS: BASOPHILS % (AUTO) 0 % (0-1); EOSINOPHILS % (AUTO) 2 % (1-7); LYMPHOCYTES % (AUTO) 10 % (22-44); MEAN CORPUSCULAR HEMOGLOBIN 32.6 pg (27.0-34.8); MEAN PLATELET VOLUME 8.3 fL (7.4-10.4); MONOCYTES % (AUTO) 11 % (2-9); NEUTROPHILS % (AUTO) 78 % (42-75); PLATELET COUNT 325 x10^3/uL (130-400); RED BLOOD COUNT 2.52 x10^6/uL (3.82-5.3); RED CELL DISTRIBUTION WIDTH 14.3 % (9.6-15.2)
[2021-02-01] MEDS: SUCROFERRIC OXYHYDROXIDE 1000 MG PO SCH ×2 (08:00→12:00)
[2021-02-01 08:24] VITALS: BP 93/53
[2021-02-01] MEDS ORDERED: ASPIRIN 325 MG TABLET PO SCH (08:30)
[2021-02-01] MEDS: DOCUSATE 100 MG CAPSULE PO SCH (08:32)
[2021-02-01] MEDS ORDERED: APIXABAN 2.5 MG TABLET PO SCH (09:00)
[2021-02-01 13:25] VITALS: BP 92/50
[2021-02-01] MEDS: OXYcodone IR 5MG TABLET PO PRN (13:46)
[2021-02-01] MEDS ORDERED: ASPI81TA45 PO (15:12)
[2021-02-01] MEDS ORDERED: CEFA2PLA10 IV (15:12)
[2021-02-01] MEDS ORDERED: APIX2.5T PO (15:12)
[2021-02-01] MEDS ORDERED: CEPH750C9 PO (15:29)
== END 2021-02-01 17:20 | disposition home or self-care (01) | DRG 252 ==
LOC: ED 11:52 → INTOOBSV 17:38 → EDIP 17:38 → OBSVTOIN 17:39 → 4WST 21:10 → CCU 01-27 17:23 → 4WST 01-29 16:32
PROVIDERS: ADMIT Family Medicine; ATTEND Internal Medicine
PROC: 5A1D70Z Performance of Urinary Filtration, Intermittent, Less than 6 Hours Per Day (ICD-10-PCS; 2021-01-21)
PROC: 5A1D70Z Performance of Urinary Filtration, Intermittent, Less than 6 Hours Per Day (ICD-10-PCS; 2021-01-24)
PROC: 5A1D70Z Performance of Urinary Filtration, Intermittent, Less than 6 Hours Per Day (ICD-10-PCS; 2021-01-26)
PROC: 0JH63XZ Insertion of Tunneled Vascular Access Device into Chest Subcutaneous Tissue and Fascia, Percutaneous Approach (ICD-10-PCS; 2021-01-28)
PROC: B51W1ZZ Fluoroscopy of Dialysis Shunt/Fistula using Low Osmolar Contrast (ICD-10-PCS; 2021-01-28)
PROC: 06HY33Z Insertion of Infusion Device into Lower Vein, Percutaneous Approach (ICD-10-PCS; 2021-01-28)
PROC: 5A1D70Z Performance of Urinary Filtration, Intermittent, Less than 6 Hours Per Day (ICD-10-PCS; 2021-01-29)
PROC: 03LY0ZZ Occlusion of Upper Artery, Open Approach (ICD-10-PCS; 2021-01-29)
PROC: 05BC0ZZ Excision of Left Basilic Vein, Open Approach (ICD-10-PCS; 2021-01-29)
PROC: 031C3ZF Bypass Left Radial Artery to Lower Arm Vein, Percutaneous Approach (ICD-10-PCS; principal; 2021-01-29 12:00)
DX: T82.7XXA Infection and inflammatory reaction due to other cardiac and vascular devices, implants and grafts, initial encounter (principal); A41.01 Sepsis due to Methicillin susceptible Staphylococcus aureus; N18.6 End stage renal disease; I63.9 Cerebral infarction, unspecified; R65.21 Severe sepsis with septic shock; D68.69 Other thrombophilia; E87.1 Hypo-osmolality and hyponatremia; I13.2 Hypertensive heart and chronic kidney disease with heart failure and with stage 5 chronic kidney disease, or end stage renal disease; I42.9 Cardiomyopathy, unspecified; I50.20 Unspecified systolic (congestive) heart failure; I82.C11 Acute embolism and thrombosis of right internal jugular vein; I87.1 Compression of vein; L03.113 Cellulitis of right upper limb; T82.510A Breakdown (mechanical) of surgically created arteriovenous fistula, initial encounter; T82.590A Other mechanical complication of surgically created arteriovenous fistula, initial encounter; Z20.822 Contact with and (suspected) exposure to COVID-19; Y83.2 Surgical operation with anastomosis, bypass or graft as the cause of abnormal reaction of the patient, or of later complication, without mention of misadventure at the time of the procedure; E83.39 Other disorders of phosphorus metabolism; E83.52 Hypercalcemia; E88.09 Other disorders of plasma-protein metabolism, not elsewhere classified; D63.1 Anemia in chronic kidney disease; D72.829 Elevated white blood cell count, unspecified; E78.5 Hyperlipidemia, unspecified; E87.5 Hyperkalemia; F12.90 Cannabis use, unspecified, uncomplicated; D64.9 Anemia, unspecified; F40.240 Claustrophobia; N25.0 Renal osteodystrophy; Y71.2 Prosthetic and other implants, materials and accessory cardiovascular devices associated with adverse incidents; B95.62 Methicillin resistant Staphylococcus aureus infection as the cause of diseases classified elsewhere; W18.39XA Other fall on same level, initial encounter; Y93.89 Activity, other specified; Y92.89 Other specified places as the place of occurrence of the external cause; Y99.8 Other external cause status; Z79.01 Long term (current) use of anticoagulants; Z82.49 Family history of ischemic heart disease and other diseases of the circulatory system; Z86.73 Personal history of transient ischemic attack (TIA), and cerebral infarction without residual deficits; Z91.041 Radiographic dye allergy status; Z99.2 Dependence on renal dialysis; Z88.8 Allergy status to other drugs, medicaments and biological substances; Z79.899 Other long term (current) drug therapy; Z79.891 Long term (current) use of opiate analgesic; Z83.49 Family history of other endocrine, nutritional and metabolic diseases
CPT/HCPCS: 36415; 36556; 36901; 70450; 70551; 71045; 76937; 80048; 80053; 80061; 80069; 80202; 82040; 82550; 82962; 83605; 83735; 84100; 84484; 85025; 86140; 86317; 86704; 86706; 87040; 87077; 87081; 87147; 87186; 87340; 87635; 90935; 93005; 93306; 93356; 93880; 93990; 96365; 96375; 99156; 99157; G0378; J0171; J0295; J0690; J0696; J0882; J1100; J1170; J1644; J2185; J2250; J2405; J2704; J2720; J3010; J3370; Q0162; Q9967; C1751; C1769; C1894; G0365; J1200; J2060; J2440; J7030; J7040; J7050; J7512